=== PATIENT | female | born 1955 | race Caucasian/White ===

== ENCOUNTER 2019-08-15 14:57 | Emergency (ER) | payer OTHER ==
[2019-08-15 17:26] LABS: Urine Blood TRACE (NEG); Urine Glucose NEGATIVE (NEG); Urine Protein NEGATIVE (NEG); Urine Specific Gravity 1.025 (1.005-1.030)
[2019-08-15 17:36] LABS: Urine Bacteria >50 /HPF (<20); Urine Culture Reflex Order NOT NEEDED; Urine RBC <5 /HPF (NONE SEEN)
--- NOTE | 2019-08-15 18:06 | EDPHYS ---
Physician Documentation [facility] Name: Myriam Villafana Age: 63 yrs Sex: Female : 1955 Arrival Date: 08/15/2019 Time: 14:58 Bed 6 Private MD: Kike Manuel R ED Physician Louie Holcomb HPI: 08/14 18:04 This 63 yrs old Female presents to ER via Ambulatory with complaints of Low snw Back Pain. 18:04 The patient presents with pain that is acute, with no known mechanism of injury, and snw decreased range of motion. The symptoms are located in the low back. The pain does not radiate. The problem was sustained from unknown cause. Onset: The symptoms/episode began/occurred gradually. Associated signs and symptoms: Pertinent positives: increased pain with sitting. Severity of symptoms: At their worst the symptoms were moderate, severe. The patient has not experienced similar symptoms in the past. It is unknown whether or not the patient has recently seen a physician. denies fever. Historical: - Allergies: 15:51 Bactrim; jl7 - Home Meds: 15:51 metformin Oral [Active]; jl7 - PMHx: 15:51 Diabetes - NIDDM; Hyperlipidemia; Hypertension; jl7 - Immunization history:: Adult Immunizations unknown. - Social history:: Smoking status: Patient denies any tobacco usage or history of. ROS: 18:03 Constitutional: Negative for fever, chills, and weight loss, Eyes: Negative for injury, snw pain, redness, and discharge, ENT: Negative for injury, pain, and discharge, Neck: Negative for injury, pain, and swelling, Cardiovascular: Negative for chest pain, palpitations, and edema, Respiratory: Negative for shortness of breath, cough, wheezing, and pleuritic chest pain, Abdomen/GI: Negative for abdominal pain, nausea, vomiting, diarrhea, and constipation, : Negative for injury, bleeding, discharge, and swelling, MS/Extremity: Negative for injury and deformity, Skin: Negative for injury, rash, and discoloration, Neuro: Negative for headache, weakness, numbness, tingling, and seizure, Psych: Negative for depression, anxiety, suicide ideation, homicidal ideation, and hallucinations. 18:03 Back: Positive for pain with movement. Exam: 18:03 Constitutional: This is a well developed, well nourished patient who is awake, alert, snw and in no acute distress. Head/Face: Normocephalic, atraumatic. Eyes: Pupils equal round and reactive to light, extra-ocular motions intact. Lids and lashes normal. Conjunctiva and sclera are non-icteric and not injected. Cornea within normal limits. Periorbital areas with no swelling, redness, or edema. ENT: Nares patent. No nasal discharge, no septal abnormalities noted. Tympanic membranes are normal and external auditory canals are clear. Oropharynx with no redness, swelling, or masses, exudates, or evidence of obstruction, uvula midline. Mucous membranes moist. Neck: Trachea midline, no thyromegaly or masses palpated, and no cervical lymphadenopathy. Supple, full range of motion without nuchal rigidity, or vertebral point tenderness. No Meningismus. Chest/axilla: Normal chest wall appearance and motion. Nontender with no deformity. No lesions are appreciated. Cardiovascular: Regular rate and rhythm with a normal S1 and S2. No gallops, murmurs, or rubs. Normal PMI, no JVD. No pulse deficits. Respiratory: Lungs have equal breath sounds bilaterally, clear to auscultation and percussion. No rales, rhonchi or wheezes noted. No increased work of breathing, no retractions or nasal flaring. Abdomen/GI: Soft, non-tender, with normal bowel sounds. No distension or tympany. No guarding or rebound. No evidence of tenderness throughout. Skin: Warm, dry with normal turgor. Normal color with no rashes, no lesions, and no evidence of cellulitis. MS/ Extremity: Pulses equal, no cyanosis. Neurovascular intact. Full, normal range of motion. Neuro: Awake and alert, GCS 15, oriented to person, place, time, and situation. Cranial nerves II-XII grossly intact. Motor strength 5/5 in all extremities. Sensory grossly intact. Cerebellar exam normal. Normal gait. Psych: Awake, alert, with orientation to person, place and time. Behavior, mood, and affect are within normal limits. 18:03 Back: pain, that is moderate, that is severe, of the lumbar area, ROM is painful, with flexion, normal spinal alignment noted, CVA tenderness, is absent, vertebral tenderness, is not appreciated, muscle spasm, is not present. Vital Signs: 15:48 BP 155 / 75; Pulse 98; Resp 17; Temp 98.5; Pulse Ox 95% ; Weight 96.16 kg; Height 5 ft. jl7 5 in. (165.10 cm); Pain 10/10; 18:50 BP 127 / 69; Pulse 76; Resp 17; Pulse Ox 99% ; Pain 7/10; rb1 15:48 Body Mass Index 35.28 (96.16 kg, 165.10 cm) jl7 MDM: 16:40 Patient medically screened. snw 18:08 Data reviewed: vital signs, nurses notes, lab test result(s), EKG, radiologic studies. [facility] Data interpreted: Pulse oximetry: on room air is 95 %. Interpretation: acceptable. 08/14 15:21 Order name: Urine Culture [facility] 08/14 15:21 Order name: Urine Microscopic Only; Complete Time: 17:38 w 08/14 15:21 Order name: Urine Dipstick-Ancillary (obtain specimen); Complete Time: 17:57 [facility] 08/14 17:05 Order name: Urine Dipstick--Ancillary (enter results); Complete Time: 17:38 mt Administered Medications: 18:10 Drug: Rocephin (cefTRIAXone) 1 grams Route: IM; Site: left gluteus; rb1 18:50 Follow up: Response: No adverse reaction rb1 18:10 Drug: Mondamin 5 mg-325 mg 1 tabs Route: PO; rb1 18:50 Follow up: Response: No adverse reaction; Pain is decreased rb1 Disposition: 08/15 08:47 Co-signature as Attending Physician, Louie Holcomb MD I agree with the assessment and kdr plan of care. Disposition: 08/15/19 18:06 Discharged to Home. Impression: Urinary tract infection, site not specified, Low back pain. - Condition is Stable. - Discharge Instructions: Back Pain, Adult, Urinary Tract Infection, Adult, Back Injury Prevention, [id number], Rehydration, Adult, Heat Therapy. - Prescriptions for Augmentin 875- 125 mg Oral Tablet - take 1 tablet by ORAL route every 12 hours for 10 days; 20 tablet. orphenadrine citrate 100 mg Oral Tablet Sustained Release - take 1 tablet by ORAL route 2 times per day As needed; 20 tablet. - Work release form, Medication Reconciliation Form, Thank You Letter, Antibiotic Education, Prescription Opioid Use form. - Follow up: Kike Manuel MD; When: 2 - 3 days; Reason: Recheck today's complaints, Continuance of care, Re-evaluation by your physician. Follow up: Emergency Department; When: As needed; Reason: Worsening of condition. Signatures: Dispatcher [employer] EDMS Louie Holcomb MD MD [facility] Jaye Banks, ELEVATOR DISPATCHER-C ELEVATOR DISPATCHER-Csnw Shira Mcginnis, RN RN rb1 Katy Russo RN RN jl7 Corrections: (The following items were deleted from the chart) 08/14 18:52 18:06 08/15/2019 18:06 Discharged to Home. Impression: Urinary tract infection, site rb1 not specified; Low back pain. Condition is Stable. Forms are Medication Reconciliation Form, Thank You Letter, Antibiotic Education, Prescription Opioid Use. Follow up: Kike Manuel; When: 2 - 3 days; Reason: Recheck today's complaints, Continuance of care, Re-evaluation by your physician. Follow up: Emergency Department; When: As needed; Reason: Worsening of condition. snw
--- NOTE | 2019-08-15 18:06 | ER ---
Nurse's Notes [facility] Name: Myriam Villafana Age: 63 yrs Sex: Female : 1955 Arrival Date: 08/15/2019 Time: 14:58 Bed 6 Private MD: Kike Manuel R Diagnosis: Urinary tract infection, site not specified;Low back pain Presentation: 08/14 15:48 Chief complaint: Patient states: worsening low back pain x 2 days, denies trauma. 7 Coronavirus screen: Proceed with normal triage. Patient denies a cough. Patient denies shortness of breath or difficulty breathing. Patient denies measured and/or subjective temperature greater than 100.4F prior to today's visit. Patient denies travel on a cruise ship or to a country the [facility] currently lists as an affected area. Patient denies contact with known and/or suspected case of COVID-19. Ebola Screen: No symptoms or risks identified at this time. Initial Sepsis Screen: Does the patient meet any 2 criteria? No. Patient's initial sepsis screen is negative. Does the patient have a suspected source of infection? No. Patient's initial sepsis screen is negative. Risk Assessment: Do you want to hurt yourself or someone else?. Onset of symptoms was August 14, 2019. Care prior to arrival: None. 15:48 Method Of Arrival: Ambulatory [facility] 15:48 Acuity: LIZ 4 7 Triage Assessment: 08/15 15:55 General: Appears in no apparent distress. Behavior is calm, cooperative, Reports lower dm5 back pain. Pain: Complains of pain in lumbar area Pain does not radiate. Pain at worst was 9 out of 10 on a pain scale. Quality of pain is described as aching, pressure, Pain began gradually, Is continuous, Alleviated by rest, Aggravated by weight bearing, sitting Noted to be grimacing, resistant to movement, Current management is with home remedies, is ineffective. EENT: No deficits noted. Neuro: No deficits noted. Cardiovascular: No deficits noted. Respiratory: No deficits noted. GI: No deficits noted. : Reports none. Derm: No deficits noted. Musculoskeletal: Reports pain in lumbar area. Injury Description: none. Historical: - Allergies: 08/14 15:51 Bactrim; jl7 - Home Meds: 15:51 metformin Oral [Active]; jl7 - PMHx: 15:51 Diabetes - NIDDM; Hyperlipidemia; Hypertension; jl7 - Immunization history:: Adult Immunizations unknown. - Social history:: Smoking status: Patient denies any tobacco usage or history of. Screenin:00 Abuse screen: Denies threats or abuse. Nutritional screening: No deficits noted. rb1 Tuberculosis screening: No symptoms or risk factors identified. Fall Risk None identified. Assessment: 18:00 General: Appears uncomfortable, Behavior is calm, cooperative, Reports fever for. Pain: rb1 Complains of pain in lumbar area Pain currently is 8 out of 10 on a pain scale. Neuro: Level of Consciousness is awake, alert, obeys commands, Oriented to person, place, time, situation. Cardiovascular: Capillary refill < 3 seconds. Respiratory: Airway is patent Respiratory effort is even, unlabored, Respiratory pattern is regular, symmetrical. GI: Reports diarrhea. : Denies burning with urination. Derm: Skin is pink, warm \T\ dry. 18:21 Reassessment: Discharge pending due to shot time. rb1 18:40 Reassessment: Patient appears in no apparent distress at this time. Patient and/or rb1 family updated on plan of care and expected duration. Pain level reassessed. Patient is alert, oriented x 3, equal unlabored respirations, skin warm/dry/pink. Vital Signs: 15:48 BP 155 / 75; Pulse 98; Resp 17; Temp 98.5; Pulse Ox 95% ; Weight 96.16 kg; Height 5 ft. jl7 5 in. (165.10 cm); Pain 10/10; 18:50 BP 127 / 69; Pulse 76; Resp 17; Pulse Ox 99% ; Pain 7/10; rb1 15:48 Body Mass Index 35.28 (96.16 kg, 165.10 cm) jl7 ED Course: 14:58 Patient arrived in ED. ag5 14:58 Kike Manuel MD is Private Physician. ag5 15:44 Jaye Banks FNP-C [facility]. snw 15:44 Louie Holcomb MD is Attending Physician. snw 15:50 Triage completed. jl7 15:51 Arm band placed on right wrist. jl7 17:56 Shira Mcginnis, JOSIAS is Primary Nurse. rb1 18:00 Patient has correct armband on for positive identification. Bed in low position. Call rb1 light in reach. Side rails up X 1. Pulse ox on. NIBP on. 18:05 Kike Manuel MD is Referral Physician. snw 18:51 No provider procedures requiring assistance completed. Patient did not have IV access rb1 during this emergency room visit. Administered Medications: 18:10 Drug: Rocephin (cefTRIAXone) 1 grams Route: IM; Site: left gluteus; rb1 18:50 Follow up: Response: No adverse reaction rb1 18:10 Drug: [place] 5 mg-325 mg 1 tabs Route: PO; rb1 18:50 Follow up: Response: No adverse reaction; Pain is decreased rb1 Outcome: 18:06 Discharge ordered by MD. snw 18:51 Discharged to home ambulatory. rb1 18:51 Condition: stable 18:51 Discharge instructions given to patient, Instructed on discharge instructions, follow up and referral plans. medication usage, Demonstrated understanding of instructions, follow-up care, medications, Prescriptions given X 2. 18:52 Patient left the ED. rb1 Signatures: Silke Celestin, RN RN dm5 Jaye Banks, BRAND STRATEGIST-C BRAND STRATEGIST-Csnw Shira Mcginnis, RN RN rb1 Katy Russo RN RN jl7 Earl Suarez ag5
[2019-08-15] MEDS ORDERED: HYDROCODONE/APAP 5/325 MG TAB ONE (18:11)
[2019-08-15] MEDS ORDERED: CEFTRIAXONE 1000 MG/VIAL ONE (18:12)
[2019-08-15] MEDS ORDERED: WATER FOR INJ,STERILE 10 ML ONE (18:12)
[2019-08-15 18:58] VITALS: TEMP 98.5
[2019-08-15 19:00] VITALS: BP 127/69; O2SAT 99
--- OUTSIDE RECORDS SUMMARY | 2019-08-15 19:15 | XMS REPORT | Continuity of Care Document ---
:1955 Author Organization [facility] t Address [address] [place] [address] Care Team Providers Name Role Phone Unavailable Unavailable Unavailable Payers Payer Name Policy Type Policy Number Effective Date Expiration Date S ource Problems This patient has no known problems. Allergies, Adverse Reactions, Alerts Allergy Allergy Status Severity Reaction(s) Onset Inactive Treating Comm ents Source Name Type Date Date Clinician sulfamet DA Active U 2017-02 [facility] hoxazole 2-26 [place] 00:00: d 00 [facility] trimetho DA Active U 2017-02 [facility] prim 2-26 [place] 00:00: d 00 [facility] sulfamet DA Active U 2017-02 [facility] trimetho DA Active U 2017-02 [facility] prim 2-[facility] Medications This patient has no known medications. Procedures This patient has no known procedures. Results Test Description Test Time Test Comments Results Result [facility] curry Comments ENDOMETRIUM,BIOPSY 2018-02-09 15:12:00 --------RUN DATE: 02/12/18 [facility] PAGE 1 RUN TIME: 843 Specimen Inquiry RUN USER: INTERFACE --------[facility]: [facility] #: [id number] AGE/SX: 62/F ROOM: RE02/07/18REG DR: Sandy Simental MD : 57 BED: DIS: STATUS: [facility] TLOC: -------- SPEC #: [id number] RECD: 02/07/18 STATUS: JOANNE DHARMESH #: [id number] HAMIDA: 02/07/18- [facility] DR: Sandy iSmental MD ENTERED: 02/07/18 SP TYPE: ENDOMETBX OT DR: ORDERED: LEVEL IV/2, FROZEN SECTION, FROZEN ADD CODES: [id number] - ENDOMETRIUM, NO PROCEDURES: LEVEL IV (Incomplete) FROZEN SECTION (Incomplete) FROZEN ADD (Incomplete) TISSUES: ENDOMETRIUM, NOS - ENDOMETRIAL POLYPS AND CURETTINGS CLINICAL HISTORY 62 year old, postmenopausal bleeding (wpd) FINAL DIAGNOSIS Specimen #1 endometrial polyps (2), excision: - benign endometrial polyps with disordered proliferative pattern and focal cystic glandular change Specimen #2 endometrium, curettage: - inactive endometrium COMMENT: Permanent sections correlate with frozen section diagnosis. Tissue code 1 CPT code(s): 22552 x2, 45616 cds/wpd GROSS DESCRIPTION ANATOMIC SOURCE OF TISSUE (per Requisition): 1. Endometrial polyps 2. Endometrial curettings Each specimen is labeled with the patient's name and medical record number. Specimen #1 received without fixative in a container, labeled with the patient's name is designated "endometrial polyps". The specimen consists of multiple portions of sheppard and red tissue in a suction collection bag aggregating to 4 x 2 x 0.6 cm and is submitted in toto in FS1 and FS2. [employer]/wpd 02/07/18 @ 9741 CONTINUED ON NEXT PAGE --------RUN DATE: 02/12/18 [facility] PAGE 2 RUN TIME: 843 Specimen Inquiry RUN USER: INTERFACE --------SPEC #: [id number] PATIENT: DONTE ADAMES V #[id number] (Continued) GROSS DESCRIPTION (Continued) Specimen #2 is designated "endometrial curettings" and consists of multiple portions of red tissue on a piece of Telfa pad aggregating to 1 x 0.6 x 0.2 cm and is submitted in toto in one cassette. [employer]/wpd 02/08/18 @ 1836 MICROSCOPIC DESCRIPTION Specimen #1 consists of multiple fragments of benign endometrial polyps with disordered proliferative pattern. The endometrial curettings have fragments of compact endometrial stroma and inactive appearing glands. The second specimen also contains one fragment of a benign endometrial polyp. cds/wpd Signed Bruce Balderas 02/09/18 1512 -------- END OF REPORT
== END 2019-08-15 18:52 | disposition home or self-care (01) ==
LOC: ER 14:57
DX: N39.0 Urinary tract infection, site not specified (principal); E11.9 Type 2 diabetes mellitus without complications; Z88.1 Allergy status to other antibiotic agents
CPT/HCPCS: 81003; 81015; 87086; 87088; 96372; 99283

== ENCOUNTER 2019-08-23 10:11 | Emergency (ER) | payer OTHER ==
--- OUTSIDE RECORDS SUMMARY | 2019-08-23 10:17 | XMS REPORT | Continuity of Care Document ---
:1955 Author Organization [facility] t Address [address] [place] [address] Care Team Providers Name Role Phone Unavailable Unavailable Unavailable Payers Payer Name Policy Type Policy Number Effective Date Expiration Date S ource Problems This patient has no known problems. Allergies, Adverse Reactions, Alerts Allergy Allergy Status Severity Reaction(s) Onset Inactive Treating Comm ents Source Name Type Date Date Clinician sulfamet DA Active U 2017-02 [facility] hoxazole 2-26 [place] 00:00: d 00 [facility] trimetho DA Active U 2017-02 [facility] prim 2-26 [place] 00:00: d 00 [facility] sulfamet DA Active U 2017-02 [facility]oxazole 2-13 [facility] trimetho DA Active U 2017-02 [facility] prim 2-13 [facility] Medications This patient has no known medications. Procedures This patient has no known procedures. Results Test Description Test Time Test Comments Results Result [facility] curry Comments ENDOMETRIUM,BIOPSY 2018-02-09 15:12:00 --------RUN DATE: 02/12/18 [facility] PAGE 1 RUN TIME: 843 Specimen Inquiry RUN USER: INTERFACE --------PAT[facility]: [facility]AMES [facility] #: [id number] AGE/SX: 62/F ROOM: RE02/07/18REG DR: Sandy Simental MD : 57 BED: DIS: STATUS: [facility] TLOC: -------- SPEC #: [id number] RECD: 02/07/18 STATUS: JOANNE DHARMESH #: [id number] HAMIDA: 02/07/18- [facility] DR: Sandy Simental MD ENTERED: 02/07/18 SP TYPE: ENDOMETBX OT DR: ORDERED: LEVEL IV/2, FROZEN SECTION, FROZEN ADD CODES: [id number] - ENDOMETRIUM, NO PROCEDURES: LEVEL IV (Incomplete) [...] section diagnosis. Tissue code 1 CPT code(s): 25348 x2, 64444 cds/wpd GROSS DESCRIPTION ANATOMIC SOURCE OF TISSUE [...] submitted in toto in FS1 and FS2. [employer]/wpd 02/07/18 @ 9343 CONTINUED ON NEXT PAGE --------RUN DATE: 02/12/18 [facility] PAGE 2 RUN TIME: 843 Specimen Inquiry RUN USER: INTERFACE --------SPEC #: [id number] PATIENT: DONTE ADAMES V #[id number] (Continued) GROSS DESCRIPTION (Continued) Specimen #2 is designated "endometrial curettings" and consists of multiple portions of red tissue on a piece of Telfa pad aggregating to 1 x 0.6 x 0.2 cm and is submitted in toto in one cassette. [employer]/wpd 02/08/18 @ 1836 MICROSCOPIC DESCRIPTION Specimen #1 consists of multiple fragments of benign endometrial polyps with disordered proliferative pattern. The endometrial curettings have fragments of compact endometrial stroma and inactive appearing glands. The second specimen also contains one fragment of a benign endometrial polyp. cds/wpd Signed Bruce Balderas 02/09/18 1512 -------- END OF REPORT
[2019-08-23 10:53] LABS: Absolute Lymphocytes (CBC) 2.1 K/uL (0.7-4.9); Basophils % 0.8 % (0-1.3); Hematocrit 38.7 % (36.0-45.0); Lymphocytes % 38.1 % (15.3-44.8); MPV 9.2 fL (7.6-11.3); RBC Red Blood Cell Count 4.29 M/uL (3.86-4.86)
[2019-08-23 11:10] LABS: Albumin 3.9 g/dL (3.4-5.0); Bilirubin Direct 0.1 mg/dL (0-0.2); Bilirubin Total 0.4 mg/dL (0.2-1.0); Potassium 3.7 mmol/L (3.5-5.1); Protein, Total 8.3 g/dL (6.4-8.2)
[2019-08-23] MEDS ORDERED: VANCOMYCIN/NS 1 gm 1 GM/250 ML BAG IV ONE (11:45)
--- NOTE | 2019-08-23 11:45 | RAD REPORT ---
EXAM DESCRIPTION: CTAbdomen Pelvis W Contrast - 08/23/2019 11:31 am CLINICAL HISTORY: Abdominal pain. Abd pain;GI bleed COMPARISON: No comparisons TECHNIQUE: Biphasic CT imaging of the abdomen and pelvis was performed with 100 ml non-ionic IV cont rast. All CT scans are performed using dose optimization technique as appropriate and may include automated exposure control or mA/KV adjustment according to patient size. 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 The liver contains a small low-density lesion in the left lobe measuring 7 mm, likely benign. No aggr essive liver mass or biliary dilatation. The spleen, pancreas, adrenal glands and kidneys are within normal limits. No bowel obstruction, free air, free fluid or abscess. Small fat containing umbilical hernia. The tg endix is normal. No evidence of significant lymphadenopathy. No suspicious bony findings. IMPRESSION: No acute intra-abdominal or pelvic finding.
[2019-08-23 12:20] LABS: Urine Blood 1+ (NEG); Urine Glucose NEGATIVE (NEG); Urine Protein NEGATIVE (NEG); Urine pH 5.5 (5.0-7.0)
--- NOTE | 2019-08-23 13:33 | ER ---
Nurse's Notes [facility] Name: Myriam Villafana Age: 63 yrs Sex: Female : 1955 Arrival Date: 08/23/2019 Time: 10:12 Bed 2 Private MD: Kike Manuel R Diagnosis: Hematochezia;Hemorrhoids and perianal venous thrombosis Presentation: 08/22 10:24 Chief complaint: Patient states: blood in stool and hematuria started this morning. sv Recently dx with UTI and on abx. Coronavirus screen: Proceed with normal triage. Patient denies a cough. Patient denies shortness of breath or difficulty breathing. Patient denies measured and/or subjective temperature greater than 100.4F prior to today's visit. Patient denies travel on a cruise ship or to a country the [facility] currently lists as an affected area. Patient denies contact with known and/or suspected case of COVID-19. Ebola Screen: No symptoms or risks identified at this time. Risk Assessment: Do you want to hurt yourself or someone else? Patient reports no desire to harm self or others. Onset of symptoms was August 23, 2019. 10:24 Method Of Arrival: Ambulatory sv 10:24 Acuity: LIZ 3 sv 10:25 Initial Sepsis Screen: Does the patient meet any 2 criteria? No. Patient's initial sv sepsis screen is negative. Does the patient have a suspected source of infection? No. Patient's initial sepsis screen is negative. Triage Assessment: 10:31 General: Appears in no apparent distress. comfortable, Behavior is calm, cooperative, sv appropriate for age. Neuro: Level of Consciousness is awake, alert, obeys commands, Oriented to person, place, time, situation, Gait is steady. Respiratory: Respiratory effort is even, unlabored. 10:31 GI: Reports bloody stool. sv Historical: - Allergies: 10:25 Bactrim; sv - PMHx: 10:25 Diabetes - NIDDM; Hyperlipidemia; Hypertension; sv - Immunization history:: Adult Immunizations. - Social history:: Smoking status: Patient denies any tobacco usage or history of. Screenin:11 Abuse screen: Denies threats or abuse. Denies injuries from another. Nutritional iw screening: No deficits noted. Tuberculosis screening: No symptoms or risk factors identified. Fall Risk IV access (20 points). Assessment: 11:11 General: Appears in no apparent distress. comfortable, Behavior is calm, cooperative. iw Pain: Denies pain. Neuro: Level of Consciousness is awake, alert, obeys commands, Oriented to person, place, time, situation, Moves all extremities. Full function. Cardiovascular: Patient's skin is warm and dry. Respiratory: Respiratory effort is even, unlabored, Respiratory pattern is regular, symmetrical. GI: Reports diarrhea, bloody stool. Derm: Skin is intact, is healthy with good turgor. Musculoskeletal: Range of motion: intact in all extremities. 14:00 Reassessment: Patient appears in no apparent distress at this time. Patient is alert, em oriented x 3, equal unlabored respirations, skin warm/dry/pink. waiting for IV ABX to finish prior to being discharged. Vital Signs: 10:25 BP 144 / 88; Pulse 76; Resp 18; Temp 98.8; Pulse Ox 99% ; Weight 96.16 kg; Height 5 ft. sv 4 in. (162.56 cm); 10:25 Body Mass Index 36.39 (96.16 kg, 162.56 cm) sv ED Course: 10:12 Patient arrived in ED. ag5 10:12 Kike Manuel MD is Private Physician. ag5 10:13 Louie Holcomb MD is Attending Physician. kdr 10:25 Triage completed. sv 10:25 Arm band placed on. sv 10:25 Patient has correct armband on for positive identification. Placed in gown. Bed in low mh5 position. Call light in reach. Side rails up X 1. Warm blanket given. library monitor on. Pulse ox on. NIBP on. 10:29 Lewis Fuller, RN is Primary Nurse. em 10:50 Initial lab(s) drawn, by me, sent to lab. Inserted saline lock: 20 gauge in right iw antecubital area, using aseptic technique. 11:32 CT Abd/Pelvis - IV Contrast Only In Process Unspecified. EDMS 13:30 Kike Manuel MD is Referral Physician. kdr 14:55 IV discontinued, Pressure dressing applied. mh5 Administered Medications: 12:12 Drug: vancoMYCIN 1 grams Route: IVPB; Infused Over: 2 hrs; Site: right antecubital; em Outcome: 13:32 Discharge ordered by . kdr 15:09 Patient left the ED. iw Signatures: Dispatcher [employer] Dolly Reed RN RN Louie Alvarado MD MD kdr Munoz, Edgar, RN RN em Williams, Irene, RN RN iw Martinez, Maria [facility] Earl Suarez 5 Corrections: (The following items were deleted from the chart) 10:31 10:24 Chief complaint: Patient states: blood in stool and hematuria started this morning. sv
--- NOTE | 2019-08-23 13:33 | EDPHYS ---
Physician Documentation [facility] Name: Myriam Villafana Age: 63 yrs Sex: Female : 1955 Arrival Date: 08/23/2019 Time: 10:12 Bed 2 Private MD: Kike Manuel R ED Physician Louie Holcomb HPI: 08/22 15:27 This 63 yrs old Female presents to ER via Ambulatory with complaints of kdr Bloody Stools. 15:27 The patient presents to the emergency department with rectal bleeding, a small amount, kdr in toilet bowl, with incontinence. Onset: The symptoms/episode began/occurred gradually, 2 day(s) ago. Abdominal pain: none is appreciated. Modifying factors: The symptoms are alleviated by nothing, the symptoms are aggravated by nothing. Associated signs and symptoms: Pertinent positives: diarrhea, Pertinent negatives: dizziness at rest, dizziness when standing, fever, shortness of breath, syncope. Severity of symptoms: At their worst the symptoms were mild in the emergency department the symptoms have improved mildly. The patient has not experienced similar symptoms in the past. The patient has been recently seen by a physician: The patient has been recently seen at the [facility] Emergency Department, last week, Was put on abx (Augmentin) for UTI. Historical: - Allergies: 10:25 Bactrim; sv - PMHx: 10:25 Diabetes - NIDDM; Hyperlipidemia; Hypertension; sv - Immunization history:: Adult Immunizations. - Social history:: Smoking status: Patient denies any tobacco usage or history of. ROS: 15:27 Constitutional: Negative for fever, chills, and weight loss, Eyes: Negative for injury, kdr pain, redness, and discharge, ENT: Negative for injury, pain, and discharge, Neck: Negative for injury, pain, and swelling, Cardiovascular: Negative for chest pain, palpitations, and edema, Respiratory: Negative for shortness of breath, cough, wheezing, and pleuritic chest pain, Back: Negative for injury and pain, : Negative for injury, bleeding, discharge, and swelling, MS/Extremity: Negative for injury and deformity, Skin: Negative for injury, rash, and discoloration, Neuro: Negative for headache, weakness, numbness, tingling, and seizure activity. Psych: Negative for depression, anxiety, suicide ideation, homicidal ideation, and hallucinations, Allergy/Immunology: Negative for hives, rash, and allergies, Endocrine: Negative for neck swelling, polydipsia, polyuria, polyphagia, and marked weight changes, Hematologic/Lymphatic: Negative for swollen nodes, abnormal bleeding, and unusual bruising. 15:27 Abdomen/GI: Positive for rectal bleeding, Negative for nausea, vomiting, diarrhea, constipation, abdominal distension, rectal pain. Exam: 15:27 Constitutional: This is a well developed, well nourished patient who is awake, alert, kdr and in no acute distress. Head/Face: Normocephalic, atraumatic. Eyes: Pupils equal round and reactive to light, extra-ocular motions intact. Lids and lashes normal. Conjunctiva and sclera are non-icteric and not injected. Cornea within normal limits. Periorbital areas with no swelling, redness, or edema. Neck: Trachea midline, no thyromegaly or masses palpated, and no cervical lymphadenopathy. Supple, full range of motion without nuchal rigidity, or vertebral point tenderness. No Meningismus. Chest/axilla: Normal chest wall appearance and motion. Nontender with no deformity. No lesions are appreciated. Cardiovascular: Regular rate and rhythm with a normal S1 and S2. No gallops, murmurs, or rubs. Normal PMI, no JVD. No pulse deficits. Respiratory: Lungs have equal breath sounds bilaterally, clear to auscultation and percussion. No rales, rhonchi or wheezes noted. No increased work of breathing, no retractions or nasal flaring. Abdomen/GI: Soft, non-tender, with normal bowel sounds. No distension or tympany. No guarding or rebound. No evidence of tenderness throughout. Back: No spinal tenderness. No costovertebral tenderness. Full range of motion. Skin: Warm, dry with normal turgor. Normal color with no rashes, no lesions, and no evidence of cellulitis. MS/ Extremity: Pulses equal, no cyanosis. Neurovascular intact. Full, normal range of motion. Neuro: Awake and alert, GCS 15, oriented to person, place, time, and situation. Cranial nerves II-XII grossly intact. Motor strength 5/5 in all extremities. Sensory grossly intact. Cerebellar exam normal. Normal gait. Psych: Awake, alert, with orientation to person, place and time. Behavior, mood, and affect are within normal limits. 15:27 Abdomen/GI: Rectal exam: rectal tone normal, Stool: normal, guaiac negative, hemorrhoid(s), external, without bleeding, the exam is chaperoned by the nurse. Vital Signs: 10:25 BP 144 / 88; Pulse 76; Resp 18; Temp 98.8; Pulse Ox 99% ; Weight 96.16 kg; Height 5 ft. sv 4 in. (162.56 cm); 10:25 Body Mass Index 36.39 (96.16 kg, 162.56 cm) sv MDM: 13:32 Patient medically screened. kdr 15:27 Data reviewed: vital signs, nurses notes, lab test result(s), radiologic studies. kdr Counseling: I had a detailed discussion with the patient and/or guardian regarding: the historical points, exam findings, and any diagnostic results supporting the discharge/admit diagnosis, lab results, radiology results, the need for outpatient follow up. Physician consultation: Kike Manuel MD and will see patient in office, next week. 08/22 10:31 Order name: Basic Metabolic Panel; Complete Time: 13:20 kdr 08/22 10:31 Order name: CBC with Diff; Complete Time: 10:57 [facility] 08/22 10:31 Order name: Hepatic Function; Complete Time: 13:20 [facility] 08/22 10:31 Order name: IV Saline Lock; Complete Time: 11:01 [facility] 08/22 10:31 Order name: Labs collected and sent; Complete Time: 11:01 [facility] 08/22 10:57 Order name: CT Abd/Pelvis - IV Contrast Only; Complete Time: 13:20 [facility] 08/22 11:36 Order name: Urine Dipstick--Ancillary (enter results); Complete Time: 13:20 eb Administered Medications: 12:12 Drug: vancoMYCIN 1 grams Route: IVPB; Infused Over: 2 hrs; Site: right antecubital; em Disposition: 08/23/19 13:32 Discharged to Home. Impression: Hematochezia, Hemorrhoids and perianal venous thrombosis. - Condition is Stable. - Discharge Instructions: Clostridium Difficile Infection, [id number], Hemorrhoids, [id number], Rectal Bleeding, [id number]. - Prescriptions for vancomycin 125 mg Oral capsule - take 1 capsule by ORAL route every 6 hours for 10 days; 40 capsule. Zofran 4 mg Oral Tablet - take 1 tablet by ORAL route every 4-6 hours As needed; 12 tablet. - Medication Reconciliation Form, Thank You Letter, Antibiotic Education, Work release form form. - Follow up: Kike Manuel MD; When: 2 - 3 days; Reason: Further diagnostic work-up, Recheck today's complaints, Continuance of care, Re-evaluation by your physician. - Problem is new. - Symptoms have improved. Signatures: Dispatcher [employer] Dolly Reed RN RN sv Louie Holcomb MD MD kdr Lewis Fuller RN RN em Ary Hernandez RN RN iw Corrections: (The following items were deleted from the chart) 15:09 13:32 08/23/2019 13:32 Discharged to Home. Impression: Hematochezia; Hemorrhoids and iw perianal venous thrombosis. Condition is Stable. Forms are Medication Reconciliation Form, Thank You Letter, Antibiotic Education, Prescription Opioid Use. Follow up: Kike Manuel; When: 2 - 3 days; Reason: Further diagnostic work-up, Recheck today's complaints, Continuance of care, Re-evaluation by your physician. Problem is new. Symptoms have improved. kdr
[2019-08-23 15:16] VITALS: BP 144/88; TEMP 98.8; O2SAT 99
== END 2019-08-23 15:09 | disposition home or self-care (01) ==
LOC: ER 10:11
DX: K64.5 Perianal venous thrombosis (principal); K64.9 Unspecified hemorrhoids; I10 Essential (primary) hypertension; Z88.1 Allergy status to other antibiotic agents
CPT/HCPCS: 85025; 80048; 36415; 80076; 81003; 74177; 96374; 99284; Q9967; J3370